=== PATIENT | male | born 1945 | race Caucasian/White ===

== ENCOUNTER 2024-08-21 10:30 | Emergency (ER) | payer OTHER, BC ==
[2024-08-21 11:00] VITALS: BP 120/63; PULSE 69; RESP 16; TEMP 98.2; BMI 22.8
== END 2024-08-21 11:44 | disposition home or self-care (01) ==
LOC: JER 10:30
DX: L02.212 Cutaneous abscess of back [any part, except buttock and flank] (principal)
CPT/HCPCS: 87070; 87076; 87205; 99284-25